=== PATIENT | female | born 1990 | race Caucasian/White ===

== ENCOUNTER 2021-07-31 14:14 | Outpatient (CLI) | payer BC, SELFPAY ==
--- NOTE | ~2021-07-31 | US_ITS ---
US breast RT limited DATE: 07/31/2021 14:44 INDICATION: Small palpable lump on the right, changing size with menstrual cycle. TECHNIQUE: Real-time and color flow imaging targeted at right breast lump at 9:00 1 cm from nipple COMPARISON: None FINDINGS: There is a circumscribed parallel lobular 7.9 x 14 mm solid mass at the area of clinical co mplaint at 9:00 1 cm from the nipple. There is no suspicious vascularity or shadowing. 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 Reviewed, dictated and finalized at [facility]. IMPRESSION: BI-RADS Category 2: Benign finding; benign appearing sonographic le abdias at 9:00 1 cm from nipple, likely a fibroadenoma
== END 2021-07-31 14:15 | disposition home or self-care (01) ==
PROVIDERS: Visit Provider Student in an Organized Health Care Education/Training Program
DX: N63.10 Unspecified lump in the right breast, unspecified quadrant (principal)
CPT/HCPCS: 76642